=== PATIENT | male | born 1995 | race Caucasian/White ===

== ENCOUNTER 2018-02-13 21:03 | Emergency (ER) ==
[2018-02-13 21:22] VITALS: BP 159/97; TEMP 98.3; BMI 30.6
--- NOTE | 2018-02-13 21:49 | ED.PDOC ---
General ED Provider: Dr. STEVEN RIES Chief Complaint: Behavioral Complaint Stated Complaint: Patient has seen PMD last week for the depression, started on Lexapro. he started having suicidal thought since morning,. No new stress, no ETOH use. Time Seen by Physician: 21:47 Mode of Arrival: Walk-In Information Source: Patient, Family Primary Care Provider: SIVAKUMAR [place] Nursing and Triage Documentation Reviewed and Agree: Yes Reviewed sepsis parameters & appropriate labs ordered?: Yes System Inflammatory Response Syndrome: Not Applicable Sepsis Protocol: For patient's 13 years and over: Temp is 96.8 and below OR 101 and greater Pulse >90 BPM Resp >20/minute Acutely Altered Mental Status Are patient's symptoms suggestive of a new infection, such as: -Pneumonia -Skin, Soft Tissue -Endocarditis -UTI -Bone, Joint Infection -Implantable Device -Acute Abdominal Infection -Wound Infection -Meningitis -Blood Stream Catheter Infection -Unknown Psychological Complaint Exam - Psychiatric Complaint/Exam Patient Complains Of: Present: Depression, Suicidal thoughts Symptoms Are: Still present Timing: Constant Episodes Lasting: Hours Initial Severity: Moderate Current Severity: Moderate Character: Present: Depressed Aggravating: Reports: None Associated Signs And Symptoms: Denies: Hostile, Confused, Hallucinating, Paranoid behavior, Sleep disturbance, Appetite change Related History: Reports: Suicidal thoughts. Denies: Suicidal plan, Suicidal gestures, Homicidal thoughts, Homicidal plan, Homicidal gestures, Prior attempts , Recent stressors, Drug ingestion Completed Suicide Risk Factors: None Patient Accompanied By: Family Patient In Custody Of Police: No Social Withdrawal Present: No Social Isolation Present: No Prior Suicide Attempt: No Injury From Prior Suicide Attempt: No Related Surgical History: Reports: None Patient Uncooperative For Exam: No Mood: Present: Depressed Appearance: Present: Clean Thought Process: Present: Logical Insight: Present: Good Memory: Intact Judgement: Normal Danger To Others: No Patient Medically Stable For: Psych evaluation Differential Diagnoses: Depression, Other (suicidal thoughts) Review of Systems - Review Of Systems Constitutional: Reports: No symptoms Eyes: Reports: No symptoms Ears, Nose, Mouth, Throat: Reports: No symptoms Respiratory: Reports: No symptoms Cardiac: Reports: No symptoms GI: Reports: No symptoms : Reports: No symptoms Musculoskeletal: Reports: No symptoms Skin: Reports: No symptoms Neurological: Reports: No symptoms Endocrine: Reports: No symptoms Hematologic/Lymphatic: Reports: No symptoms All Other Systems: Reviewed and Negative Past Medical History - Past Medical History Previously Healthy: Yes Endocrine: Reports: None Cardiovascular: Reports: None Respiratory: Reports: None Hematological: Reports: None Gastrointestinal: Reports: None Genitourinary: Reports: None Neuro/Psych: Reports: Depression Musculoskeletal: Reports: None Cancer: Reports: None - Surgical History General Surgical History: Reports: Other (PE tubes) - Family History Family History: Reports: None - Social History Smoking Status: Former smoker Hx Substance Use: No Alcohol Screening: Occasionally - Immunizations Tetanus Shot up to Date: Yes Physical Exam - Physical Exam Appearance: Well-appearing, No pain distress, Well-nourished Eyes: RYAN, EOMI, Conjunctiva clear ENT: Ears normal, Nose normal, Oropharynx normal Respiratory: Airway patent, Breath sounds clear, Breath sounds equal, Respirations nonlabored Cardiovascular: RRR, Pulses normal, No rub, No murmur GI/: Soft, Nontender, No masses, Bowel sounds normal, No Organomegaly Musculoskeletal: Normal strength, ROM intact, No edema, No calf tenderness Skin: Warm, Dry, Normal color Neurological: Sensation intact, Motor intact, Reflexes intact, Cranial nerves intact, Alert, Oriented Psychiatric: Affect appropriate, Mood appropriate Critical Care Note - Critical Care Note Total Time (mins): 20 Course - Course Orders, Labs, Meds: Orders Category Date Time Status EKG-(ED ONLY) Stat CARDIO 02/13/18 21:45 Ordered ACETAMINOPHEN Stat LAB 02/13/18 21:45 Ordered BLOOD ALCOHOL Stat LAB 02/13/18 21:45 Ordered CBC W/ AUTO DIFF Stat LAB 02/13/18 21:45 Ordered COMPREHENSIVE METABOLIC PANEL Stat LAB 02/13/18 21:45 Ordered SALICYLATE Stat LAB 02/13/18 21:45 Ordered THYROID STIMULATING HORMONE Stat LAB 02/13/18 21:45 Ordered URINALYSIS C & S IF INDICATED Stat LAB 02/13/18 21:45 Uncollected URINE DRUG SCREEN (RAPID FOR ED) [DRUG SCREEN, URINE, LAB 02/13/18 21:45 Uncollected RAPID] Stat Vital Signs: Temp Pulse Resp BP Pulse Ox 02/13/18 21:06 98.3 F 74 20 159/97 H 97 Departure - Departure Time of Disposition: 23:20 Disposition: HOME SELF-CARE Discharge Problem: Suicidal thoughts Instructions: Help Prevent Suicide (ED) Condition: Stable Pt referred to PMD for follow-up: Yes IPMP verified?: No Additional Instructions: Keep f/u with Mental health Stop Lexapro Allergies/Adverse Reactions: Allergies No Known Allergies Allergy (Verified 02/13/18 21:18) Home Medications: Ambulatory Orders Escitalopram Oxalate [Lexapro] 10 mg PO DAILY 02/13/18 Disposition Discussed With: Patient, Family
[2018-02-13] MEDS ORDERED: ATIVAN PO STA (23:32)
== END 2018-02-13 23:38 | disposition home or self-care (01) ==
LOC: ED 21:03
DX: R45.851 Suicidal ideations (principal)
CPT/HCPCS: 36415; 80053; 80306; 80307; 81001; 84443; 85025; 93005; 93010; 99283